=== PATIENT | female | born 1965 | race African-American/Black ===

== ENCOUNTER 2021-12-11 23:53 | Emergency (ER) | payer OTHER ==
[~2021-12-11] VITALS: Ht 157.5 cm; Wt 122.5 kg
[~2021-12-11 23:53] MED LIST: AMOXICILLIN 50500 M1 PO; AUGMENTIN 875875 MG PO; HYDROCHLOROTH12.5 MG PO; IBUPROFEN 600600 M1 PO; IBUPROFEN 800800 MG PO; LOVASTATIN 20 M20 MG; METFORMIN HCL500 MG; NORCO 5-325 TA1 EACH PO; PREDNISONE 20 M20 MG PO; PRILOSEC 20 MG20 MG PO; VALIUM5 MG PO
[2021-12-12 00:29] LABS: ABSOLUTE NEUTROPHILS 5.5 thou/uL (1.4-8.2); BASOPHILS 0.7 % (0.0-2.0); EOSINOPHILS 0.9 % (0.0-3.0); HEMATOCRIT 32.7 % (37.0-47.0); HEMOGLOBIN 10.6 gm/dL (12.0-15.0); MCH 27.8 pg (26.0-34.0); MCHC 32.4 g/dL (28.0-37.0); MCV 85.8 fL (80.0-100.0); MONOCYTES 6.5 % (1.0-8.0); PLATELET COUNT 375 thou/uL (150-400); POLYS 62.9 % (36.0-66.0); RBC 3.81 mil/uL (4.20-5.00); RDW 16.2 % (10.5-14.5); WBC 8.8 thou/uL (4.0-11.0)
[2021-12-12 00:39] LABS: CALCIUM 8.5 mg/dL (8.5-10.1); CREATININE 0.7 mg/dL (0.6-1.0)
[2021-12-12] MEDS ORDERED: PERCOCET 5-3251 EACH PO (01:50)
[2021-12-12] MEDS ORDERED: AMOX TR-K CLV1 EAC4 PO (01:50)
[2021-12-12 01:53] VITALS: BP 124/74
== END 2021-12-12 02:10 | disposition home or self-care (01) ==
LOC: ER 23:53
PROVIDERS: Student in an Organized Health Care Education/Training Program
DX: S01.511A Laceration without foreign body of lip, initial encounter (principal); S03.2XXA Dislocation of tooth, initial encounter; I10 Essential (primary) hypertension; E11.9 Type 2 diabetes mellitus without complications; Z98.51 Tubal ligation status; Z79.899 Other long term (current) drug therapy; W10.8XXA Fall (on) (from) other stairs and steps, initial encounter; Y93.01 Activity, walking, marching and hiking; Y92.098 Other place in other non-institutional residence as the place of occurrence of the external cause; Y99.9 Unspecified external cause status